=== PATIENT | male | born 1975 | race Caucasian/White ===

== ENCOUNTER 2016-10-07 06:18 | Emergency (ER) | payer BC ==
[~2016-10-07] VITALS: Ht 177.8 cm; Wt 77.3 kg
[~2016-10-07 06:18] MED LIST: AMOXICILLIN 8751 TAB PO; PROTONIX40 MG PO; SOMA250 MG PO; ZITHROMAX Z PA250 MG PO
[2016-10-07 06:21] VITALS: BP 126/74; TEMP 97.7
[2016-10-07] MEDS ORDERED: DOXYCYCLINE 10100 MG PO (06:25)
[2016-10-07] MEDS ORDERED: MUCINEX D 12001 TER PO (06:25)
[2016-10-07] MEDS ORDERED: ALBUTEROL0.83 MG/ML IH (06:26)
[2016-10-07] MEDS ORDERED: PROAIR HFA0.09 MG/AC IH (06:26)
[2016-10-07 08:00] VITALS: PULSE 78
== END 2016-10-07 08:00 | disposition home or self-care (01) ==
LOC: COL.ER 06:18
DX: R00.2 Palpitations (principal); J06.9 Acute upper respiratory infection, unspecified

== ENCOUNTER 2019-09-12 02:55 | Emergency (ER) | payer BC ==
[~2019-09-12] VITALS: Ht 177.8 cm; Wt 81.8 kg
[~2019-09-12 02:55] MED LIST changes: +ALBUTEROL0.83 MG/ML IH; +DOXYCYCLINE 10100 MG PO; +MUCINEX D 12001 TER PO; +PROAIR HFA0.09 MG/AC IH
[2019-09-12 03:00] VITALS: TEMP 96.8
[2019-09-12 03:22] LABS: BASO % 0.4 % (0.0-2.0); EOS # 0.1 (0.0-0.7); EOS % 1.8 % (0-4.0); GRAN # 2.8 (1.4-6.5); GRAN % 38.3 % (42.2-75.2); HEMATOCRIT 51.9 % (42.0-52.0); HEMOGLOBIN 17.6 g/dl (13.5-18.0); LYMPH # 3.7 (1.2-3.4); LYMPH % 50.9 % (20.0-51.0); MEAN CELL VOLUME 90 fl (80.0-100.0); MEAN CORPUSCULAR HEMOGLOBIN 31 pg (27.0-31.0); MEAN CORPUSCULAR HGB CONC 34 g/dl (33.0-37.0); MONO # 0.6 (0.1-0.6); MONO % 8.5 % (1.7-9.3); PLATELET COUNT 121 K/mm3 (130-400); RED BLOOD COUNT 5.74 M/mm3 (4.20-5.60); REDCELL DISTRIBUTION WIDTH-CV 11.9 % (11.5-14.5)
[2019-09-12 03:28] LABS: ALANINE AMINOTRANSFERASE 23 U/L (21-72); ALBUMIN 4.6 gm/dL (3.5-5.0); ALKALINE PHOSPHATASE 62 U/L (50-136); ANION GAP 11 mmol/L (7-16); AST,SGOT 25 U/L (15-37); BILIRUBIN,TOTAL 0.6 mg/dL (0.0-1.0); BLOOD UREA NITROGEN 14 mg/dL (9-20); CALCIUM 9.2 mg/dL (8.4-10.2); CARBON DIOXIDE 28 mmol/L (22-30); CHLORIDE 103 mmol/L (98-107); CREATININE, serum 0.93 (0.66-1.25); GLUCOSE 112 mg/dL (74-106); POTASSIUM 3.5 mmol/L (3.4-5.0); SODIUM 142 mmol/L (137-145); TOTAL PROTEIN 7.9 gm/dL (6.4-8.2)
[2019-09-12 03:34] LABS: INR 0.9 (0.8-3.0); PROTHROMBIN TIME 10.7 SECONDS (9.7-12.8)
[2019-09-12 03:40] LABS: TROPONIN-I < 0.012 ng/mL (0.000-0.035)
[2019-09-12 05:15] VITALS: BP 96/71; PULSE 88
== END 2019-09-12 05:30 | disposition short-term general hospital (02) ==
LOC: COL.ER 02:55
PROVIDERS: Emergency Medicine
DX: I48.91 Unspecified atrial fibrillation (principal)
CPT/HCPCS: J1650; J7030